=== PATIENT | male | born 1940 | race Caucasian/White ===

== ENCOUNTER 2018-03-12 04:55 | Emergency (ER) | payer MEDICARE ==
[2018-03-12] MEDS ORDERED: Albuterol 8 GM Inhaler INH ONE (06:00)
[2018-03-12] MEDS ORDERED: Azithromycin 250 MG Tab ONE (06:00)
--- NOTE | 2018-03-12 06:54 | EDM.PDOC ---
ED HPI GENERAL MEDICAL PROBLEM - General Chief Complaint: General Stated Complaint: cold Time Seen by Provider: 03/12/18 05:10 Source of Information: Reports: Patient, Family History Limitations: Reports: No Limitations - History of Present Illness INITIAL COMMENTS - FREE TEXT/NARRATIVE: Patient is a 78 year old man who has had cough and cold symptoms with sinus congestion, drainage, sorethroat and mildly productive cough for the last 4 days. He was cleaning out a van that was filled with filth yesterday and his coughing has worsened. He got into a severe coughing spell this morning and had to use his 's albuterol inhaler to catch his breath. He is afraid he may have pneumonia and wants to check some labs and an x-ray. He has a little pain when he coughs but no other chest pain or shortness of breath. 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: Other Medication(s) (Albuterol) - Related Data Allergies Allergy/AdvReac Type Severity Reaction Status Date / Time No Known Allergies Allergy Verified 03/12/18 05:08 Home Meds: Home Meds NK [No Known Home Meds] 03/12/18 [History] ED ROS GENERAL - Review of Systems Review Of Systems: See Below Constitutional: Reports: Other (Cough and Cold symptoms) HEENT: Reports: Sinus Problem, Throat Pain Respiratory: Reports: Cough Cardiovascular: Reports: No Symptoms Endocrine: Reports: No Symptoms GI/Abdominal: Reports: No Symptoms : Reports: No Symptoms Musculoskeletal: Reports: No Symptoms Skin: Reports: No Symptoms Neurological: Reports: No Symptoms Psychiatric: Reports: No Symptoms Hematologic/Lymphatic: Reports: No Symptoms Immunologic: Reports: No Symptoms ED EXAM, GENERAL - Physical Exam Exam: See Below Exam Limited By: No Limitations General Appearance: Alert, WD/WN, No Apparent Distress Eye Exam: Bilateral Eye: EOMI, Normal Fundi, Normal Inspection, PERRL Ears: Normal External Exam, Normal Canal, Hearing Grossly Normal, Normal TMs Ear Exam: Bilateral Ear: Auricle Normal, Canal Normal, TM normal Nose: Normal Inspection Throat/Mouth: Normal Inspection, Normal Lips, Normal Teeth, Normal Gums, Normal Oropharynx, Normal Voice, No Airway Compromise Head: Atraumatic, Normocephalic Neck: Normal Inspection, Supple, Non-Tender, Full Range of Motion Respiratory/Chest: Rhonchi (Left base of lung) Cardiovascular: Normal Peripheral Pulses, Regular Rate, Rhythm, No Edema, No Gallop, No JVD, No Murmur, No Rub GI/Abdominal: Normal Bowel Sounds, Soft, Non-Tender, No Organomegaly, No Distention, No Abnormal Bruit, No Mass Back Exam: Normal Inspection, Full Range of Motion, NT Extremities: Normal Inspection, Normal Range of Motion, Non-Tender, Normal Capillary Refill, No Pedal Edema Neurological: Alert, Oriented, CN II-XII Intact, Normal Cognition, Normal Gait, Normal Reflexes, No Motor/Sensory Deficits Psychiatric: Normal Affect, Normal Mood Skin Exam: Warm, Dry, Intact, Normal Color, No Rash Lymphatic: No Adenopathy EKG INTERPRETATION EKG Date: 03/12/18 Rhythm: NSR Refugio: Normal P-Wave: Present QRS: Normal ST-T: Normal QT: Normal Comparison: NA - No Prior EKG Course - Vital Signs Text/Narrative:: Uneventful ED course. His CXR and labs were all normal and he felt good throughout the hospital ED course. He will be put on a Zithromax Z-mary ellen and will be given an Albuterol Inhaler to be used 2 puffs every 2 hours has needed. He will take Tylenol 500 mg po q 4 hours and will push fluids and use an OTC cough medicine if needed. He will check either here or in the clinic if any problems arise before then. Last Recorded V/S: Last Vital Signs Temp 36.8 C 03/12/18 05:14 Pulse 65 03/12/18 05:14 Resp 12 03/12/18 05:14 BP 125/70 03/12/18 05:14 Pulse Ox 97 03/12/18 05:14 - Orders/Labs/Meds Orders: Active Orders 24 hr Category Date Time Status EKG Documentation Completion [RC] ASDIRECTED Care 03/12/18 05:21 Active CXR [Chest 2V] [CR] Stat Exams 03/12/18 05:19 Taken Labs: Laboratory Tests 03/12/18 03/12/18 Range/Units 06:00 06:00 WBC 6.4 (4.0-11.0) K/uL RBC 4.43 L (4.50-6.50) M/uL Hgb 13.7 (13.0-18.0) g/dL Hct 40.4 (40.0-54.0) % MCV 91 (76-96) fL MCH 30.9 (27.0-32.0) pg MCHC 33.9 (31.0-35.0) g/dL RDW 13.9 (11.0-16.0) % Plt Count 160 (150-400) K/uL MPV 9.4 (6.0-10.0) fL Neut % (Auto) 63.5 (45.0-70.0) % Lymph % (Auto) 17.5 L (20.0-40.0) % Dougherty % (Auto) 16.7 H (3.0-10.0) % Eos % (Auto) 2.0 (1.0-5.0) % Baso % (Auto) 0.3 (0.0-0.5) % Neut # (Auto) 4.04 (2.00-7.50) K/uL Lymph # (Auto) 1.11 L (1.50-4.00) K/uL Dougherty # (Auto) 1.06 H (0.20-0.80) K/uL Eos # (Auto) 0.13 (0.04-0.40) K/uL Baso # (Auto) 0.02 (0.02-0.10) K/uL Sodium 141 (136-145) mmol/L Potassium 4.0 (3.5-5.1) mmol/L Chloride 105 (98-107) mmol/L Carbon Dioxide 30.2 (21.0-32.0) mmol/L Anion Gap 9.8 (5.0-15.0) mmol/L BUN 12 (8-26) mg/dL Creatinine 0.98 (0.70-1.30) mg/dL Est Cr Clr Drug Dosing TNP Estimated GFR (MDRD) > 60 (>60) MLS/MIN BUN/Creatinine Ratio 12.2 (6-25) Glucose 117 H (74-100) mg/dL Calcium 8.3 L (8.5-10.1) mg/dL Total Bilirubin 0.3 (0.0-1.0) mg/dL AST 24 (15-37) U/L ALT 34 (12-78) U/L Alkaline Phosphatase 59 (46-116) U/L Troponin I < 0.017 (0.000-0.060) ng/mL Total Protein 6.6 (6.4-8.2) g/dL Albumin 3.2 L (3.4-5.0) g/dL Globulin 3.4 (2.2-4.2) g/dL Albumin/Globulin Ratio 0.9 (0.8-2.0) Departure - Departure Time of Disposition: 07:00 Disposition: Home, Self-Care 01 Condition: Good Clinical Impression: Asthmatic bronchitis - Discharge Information Instructions: Albuterol inhalation aerosol, Azithromycin tablets Forms: ED Department Discharge Additional Instructions: Take 2 tablets azithromax today. The take 1 tablet azithromycin for the next 4 days. Take inhaler 2 puffs every four hours as needed for shortness of breath. Follow up with primary care provider if needed. - My Orders Last 24 Hours: My Active Orders 03/12/18 05:19 CXR [Chest 2V] [CR] Stat 03/12/18 05:21 EKG Documentation Completion [RC] ASDIRECTED - Assessment/Plan Last 24 Hours: My Active Orders 03/12/18 05:19 CXR [Chest 2V] [CR] Stat 03/12/18 05:21 EKG Documentation Completion [RC] ASDIRECTED
--- NOTE | 2018-03-13 18:03 | CR ---
DATE OF SERVICE: 03/12/2018 CLINICAL DATA: Cough. PA AND LATERAL CHEST: The heart size is normal. The aorta is ectatic. The lungs are clear. No pneumothorax. No pleural effusions. There is degenerative disc disease throughout the thoracic spine. There is mild anterior wedging of multiple mid thoracic vertebrae, age indeterminate. IMPRESSION: No evidence of acute intrathoracic disease. [id number] [facility]
== END 2018-03-12 06:40 | disposition home or self-care (01) ==
LOC: LB.ED 04:55
DX: J45.909 Unspecified asthma, uncomplicated (principal)
CPT/HCPCS: 36415; 71046; 80053; 84484; 85025; 93005; 99283; 99284-25; A9270-GY